=== PATIENT | female | born 1935 | race Caucasian/White ===

== ENCOUNTER 2017-11-28 22:20 | Emergency (ER) | payer MEDICARE, BC ==
[~2017-11-28 22:20] MED LIST: Sodium Chloride Irrig Solution 250 ML BOT ONE
[2017-11-28] MEDS ORDERED: Bacitracin Zinc 1 Packet ONE (22:51)
== END 2017-11-28 23:09 | disposition home or self-care (01) ==
LOC: MADERS 22:20
DX: S41.111A Laceration without foreign body of right upper arm, initial encounter (principal); S60.512A Abrasion of left hand, initial encounter; I10 Essential (primary) hypertension; E78.5 Hyperlipidemia, unspecified; F41.9 Anxiety disorder, unspecified; W55.03XA Scratched by cat, initial encounter
CPT/HCPCS: 99283